=== PATIENT | female | born 1940 | race Caucasian/White ===

== ENCOUNTER 2021-02-12 11:12 | Day surgery (SDC) | payer MEDICARE, BC ==
[2021-02-07 10:14] LABS: BASOPHILS % (AUTO) 0.8 % (0-1); EOSINOPHILS # (AUTO) 0.1 X10'3 (0-0.9); EOSINOPHILS % (AUTO) 2.3 % (0-6); HEMATOCRIT 38.5 % (35.0-45.0); HEMOGLOBIN 12.1 g/dl (12.0-16.0); LYMPHOCYTES # (AUTO) 0.4 X10'3 (1.1-4.8); LYMPHOCYTES % (AUTO) 13.1 % (21-51); MEAN CORPUSCULAR HGB CONC 31.5 g/dL (33.0-36.5); MEAN CORPUSCULAR VOLUME 85.7 FL (78-98); MEAN PLATELET VOLUME 8.5 FL (7.4-10.4); MONOCYTES # (AUTO) 0.6 X10'3 (0-0.9); MONOCYTES % (AUTO) 17.1 % (2-12); NEUTROPHILS # (AUTO) 2.2 X10'3 (1.8-7.7); NEUTROPHILS % (AUTO) 66.7 % (42-75); PLATELET COUNT 164 X10'3 (140-440); RED BLOOD COUNT 4.49 X10'6 (4.20-5.60); RED CELL DISTRIBUTION WIDTH 17.2 % (11.5-14.5); WHITE BLOOD COUNT 3.3 X10'3 (4.5-11.0)
[2021-02-07 10:25] LABS: ALBUMIN 4.1 G/DL (3.4-5.0); ANION GAP 8 (8-16); BLOOD UREA NITROGEN 15 MG/DL (7-18); BUN/CREATININE RATIO 12.3 (6.6-38.0); CALCIUM 9.2 MG/DL (8.5-10.1); CHLORIDE 101 MMOL/L (99-107); CREATININE 1.22 MG/DL (0.40-0.90); GLUCOSE 88 MG/DL (70-104); SODIUM 140 MMOL/L (135-145); eGFR 42 ML/MIN
[2021-02-07 10:32] LABS: ANISOCYTOSIS 1+; PLATELET ESTIMATE NORMAL; TOTAL CELLS COUNTED 100
[2021-02-07 10:33] LABS: ELLIPTOCYTES FEW
[2021-02-07 10:44] LABS: PARTIAL THROMBOPLASTIN TIME 39 SECONDS (22-32)
[~2021-02-12] VITALS: Ht 160 cm; Wt 97.3 kg
[2021-02-12] VITALS (8 sets, daily range): BP systolic 115–133; BP diastolic 59–78
[2021-02-12] MEDS ORDERED: diphenhydrAMINE 25mg capsule PO PRN (11:35)
[2021-02-12] MEDS ORDERED: normal saline 1,000 ML IV SCH (11:35)
[2021-02-12] MEDS ORDERED: LORazepam 0.5 MG tablet PO PRN (11:35)
[2021-02-12] MEDS ORDERED: LIDOcaine/PRILOcaine 5gm cream TP ONE (11:40)
[2021-02-12] MEDS ORDERED: ALLO100T PO (11:54)
[2021-02-12] MEDS ORDERED: FURO40TA4 PO (11:54)
[2021-02-12] MEDS ORDERED: SIMV-42 PO (11:54)
[2021-02-12] MEDS ORDERED: WARF2.5T82 PO (11:54)
[2021-02-12] MEDS ORDERED: METO100T14 PO (11:54)
[2021-02-12] MEDS ORDERED: ENOX100D5 (11:54)
[2021-02-12] MEDS ORDERED: LEVO100T9 PO (11:54)
[2021-02-12] MEDS ORDERED: POTA-82 PO (11:54)
[2021-02-12] MEDS ORDERED: CETI10CA PO (11:57)
[2021-02-12] MEDS ORDERED: MULT-1085 PO (11:57)
[2021-02-12] MEDS ORDERED: VITAMIN D PO (11:57)
[2021-02-12] MEDS ORDERED: FERR325T28 PO (11:58)
[2021-02-12] MEDS ORDERED: SENN-25 PO (11:58)
[2021-02-12] MEDS ORDERED: LIDOcaine 1% (10mg/ml)w/preservative injection 20ml MDV ONE (13:57)
[2021-02-12] MEDS ORDERED: fentaNYL/PF 50MCG/1 ML 2ML syringe ONE (13:57)
[2021-02-12] MEDS ORDERED: verapamil 2.5 mg/ml inj IV ONE (13:57)
[2021-02-12] MEDS ORDERED: iohexol 350MG/ML 100ml bottle IV ONE (13:57)
[2021-02-12] MEDS ORDERED: nitroGLYCERIN-Tridil 50MG/D5W 250 ML IV ONE (13:57)
[2021-02-12] MEDS ORDERED: midazolam 1 mg/ML 2ml injection ONE (13:57)
[2021-02-12] MEDS ORDERED: heparin 1,000unit/ml 10ml vial 10 ML ONE (13:57)
[2021-02-12] MEDS ORDERED: ondansetron/PF 4mg/2ml inj IV PRN (14:50)
[2021-02-12] MEDS ORDERED: OXAZEpam 15mg capsule PO PRN (14:50)
[2021-02-12] MEDS ORDERED: HYDROcodone/acetaminophen 10/325mg tab PO PRN (14:50)
[2021-02-12] MEDS ORDERED: proCHLORperazine 10 MG/2 ml inj IV PRN (14:50)
[2021-02-12] MEDS ORDERED: HYDROcodone/acetaminophen 5mg/325mg tablet PO PRN (14:50)
== END 2021-02-12 17:05 | disposition home or self-care (01) ==
LOC: SSTAY O 11:12
PROVIDERS: ATTEND Internal Medicine Interventional Cardiology
DX: I35.0 Nonrheumatic aortic (valve) stenosis (principal); I25.10 Atherosclerotic heart disease of native coronary artery without angina pectoris; J44.9 Chronic obstructive pulmonary disease, unspecified; I10 Essential (primary) hypertension; I48.91 Unspecified atrial fibrillation; I42.9 Cardiomyopathy, unspecified; E78.5 Hyperlipidemia, unspecified; E03.9 Hypothyroidism, unspecified; Z86.73 Personal history of transient ischemic attack (TIA), and cerebral infarction without residual deficits; Z79.899 Other long term (current) drug therapy; Z88.0 Allergy status to penicillin; Z87.891 Personal history of nicotine dependence
CPT/HCPCS: 36415; 80048; 85025; 85610; 85730; 93005; 93454; 99152; C1769; C1894; J1644; J2001; J2250; J3010; J7030; Q0163; Q9967; 85007; A4620; J3490

== ENCOUNTER → 2021-08-14 | Outpatient (CLI) | payer MEDICARE, BC ==
[~2021-08-14] VITALS: Ht 157.5 cm; Wt 104.3 kg
[~2021-08-14] MED LIST: ALLO100T PO; CETI10CA PO; ENOX100D5; FERR325T28 PO; FURO40TA4 PO; IODIXANOL 320 MG/ML INFUS..BTL 100ML IV ONE; IODIXANOL 320 MG/ML INFUS..BTL 50ML IV ONE; LEVO100T9 PO; METO100T14 PO; MULT-1085 PO; POTA-82 PO; SENN-25 PO; SIMV-42 PO; VITAMIN D PO; WARF2.5T82 PO; albuterol 2.5 MG/3 ML nebule NEB ONE; atropine 0.1mg/ml 10ml syringe ONE; metoprolol tartrate 1mg/ml inj IV ONE
[2021-08-14 10:26] LABS: EOSINOPHILS # (AUTO) 0.1 X10'3 (0-0.9); EOSINOPHILS % (AUTO) 2.2 % (0-6); HEMATOCRIT 38.8 % (35.0-45.0); HEMOGLOBIN 12.1 g/dl (12.0-16.0); LYMPHOCYTES # (AUTO) 0.4 X10'3 (1.1-4.8); LYMPHOCYTES % (AUTO) 12.8 % (21-51); MEAN CORPUSCULAR HEMOGLOBIN 26.4 PG (27.0-31.0); MEAN CORPUSCULAR HGB CONC 31.2 g/dL (33.0-36.5); MEAN CORPUSCULAR VOLUME 84.7 FL (78-98); MEAN PLATELET VOLUME 7.7 FL (7.4-10.4); MONOCYTES # (AUTO) 0.6 X10'3 (0-0.9); NEUTROPHILS # (AUTO) 2.2 X10'3 (1.8-7.7); PLATELET COUNT 154 X10'3 (140-440); RED BLOOD COUNT 4.57 X10'6 (4.20-5.60); RED CELL DISTRIBUTION WIDTH 25.1 % (11.5-14.5); WHITE BLOOD COUNT 3.3 X10'3 (4.5-11.0)
[2021-08-14 10:44] LABS: ALANINE AMINOTRANSFERASE 18 U/L (12-78); ALBUMIN 3.9 G/DL (3.4-5.0); ALBUMIN/GLOBULIN RATIO 1.2 (1.1-1.5); ALKALINE PHOSPHATASE 134 IU/L (46-116); ANION GAP 9 (8-16); ASPARTATE AMINO TRANSFERASE 22 U/L (10-37); BILIRUBIN,TOTAL 2.6 MG/DL (0.1-1.0); BLOOD UREA NITROGEN 26 MG/DL (7-18); BUN/CREATININE RATIO 15.2 (6.6-38.0); CALCIUM 9.5 MG/DL (8.5-10.1); CHLORIDE 101 MMOL/L (99-107); CREATININE 1.71 MG/DL (0.40-0.90); GLUCOSE 94 MG/DL (70-104); POTASSIUM 4.4 MMOL/L (3.5-5.1); SODIUM 139 MMOL/L (135-145); TOTAL CARBON DIOXIDE 29.1 MMOL/L (24-32); TOTAL PROTEIN 7.2 G/DL (6.4-8.2); eGFR 29 ML/MIN
[2021-08-14 10:59] LABS: APTT 37 SECONDS (22-32)
[2021-08-14 11:30] VITALS: BP 116/83
[2021-08-14 11:36] VITALS: BP 101/67
[2021-08-14 11:58] LABS: ANISOCYTOSIS 3+; PLATELET ESTIMATE NORMAL; SCHISTOCYTES FEW
[2021-08-14 11:59] LABS: ELLIPTOCYTES FEW; HYPOCHROMASIA 1+
[2021-08-14 12:36] LABS: ABG BASE EXCESS 0.4 mmol/L (-2.0-2.0); ABG OXYGEN SATURATION 89.7 % (94-97); ABG PCO2 (T) 39.9 mmHg (32.0-45.0); ABG PO2 (T) 57.1 mmHg (75.0-100.0); ALLEN'S TEST POSITIVE; FCOHb 1.1 % (0.0-3.9); FMetHb 0.1 % (0.0-1.5); FO2Hb 88.6 % (94-97); TOTAL HEMOGLOBIN 12.9 G/dl (12.0-16.0)
== END | disposition home or self-care (01) ==
LOC: RAD 09:48
PROVIDERS: ATTEND Internal Medicine Cardiovascular Disease
DX: Z01.818 Encounter for other preprocedural examination (principal); K57.30 Diverticulosis of large intestine without perforation or abscess without bleeding; K75.3 Granulomatous hepatitis, not elsewhere classified; I70.0 Atherosclerosis of aorta; E04.1 Nontoxic single thyroid nodule; J98.09 Other diseases of bronchus, not elsewhere classified; D17.79 Benign lipomatous neoplasm of other sites; M47.819 Spondylosis without myelopathy or radiculopathy, site unspecified; M19.012 Primary osteoarthritis, left shoulder; M24.412 Recurrent dislocation, left shoulder; I31.3 Pericardial effusion (noninflammatory); I25.10 Atherosclerotic heart disease of native coronary artery without angina pectoris; I08.0 Rheumatic disorders of both mitral and aortic valves; J90 Pleural effusion, not elsewhere classified; R94.2 Abnormal results of pulmonary function studies; M85.88 Other specified disorders of bone density and structure, other site; M19.011 Primary osteoarthritis, right shoulder; M47.814 Spondylosis without myelopathy or radiculopathy, thoracic region; Z20.822 Contact with and (suspected) exposure to COVID-19
CPT/HCPCS: 36415; 36600; 71046; 71275; 74174; 80053; 82803; 85008; 85018; 85025; 85610; 85730; 87635; 94060; 94727; 94729; 94760; C9803; J0461; J3490; Q9967

== ENCOUNTER 2021-08-30 08:54 | Outpatient (CLI) | payer MEDICARE, BC ==
[~2021-08-30 08:54] MED LIST changes: -IODIXANOL 320 MG/ML INFUS..BTL 100ML IV ONE; -IODIXANOL 320 MG/ML INFUS..BTL 50ML IV ONE; -albuterol 2.5 MG/3 ML nebule NEB ONE; -atropine 0.1mg/ml 10ml syringe ONE; -metoprolol tartrate 1mg/ml inj IV ONE
[2021-08-30 09:48] LABS: BASOPHILS % (AUTO) 0.7 % (0-1); EOSINOPHILS # (AUTO) 0.1 X10'3 (0-0.9); EOSINOPHILS % (AUTO) 2.7 % (0-6); HEMATOCRIT 37.9 % (35.0-45.0); HEMOGLOBIN 12.1 g/dl (12.0-16.0); LYMPHOCYTES # (AUTO) 0.4 X10'3 (1.1-4.8); MEAN CORPUSCULAR HEMOGLOBIN 26.6 PG (27.0-31.0); MEAN CORPUSCULAR VOLUME 83.1 FL (78-98); MEAN PLATELET VOLUME 7.8 FL (7.4-10.4); MONOCYTES # (AUTO) 0.6 X10'3 (0-0.9); MONOCYTES % (AUTO) 18.5 % (2-12); NEUTROPHILS % (AUTO) 65.1 % (42-75); PLATELET COUNT 141 X10'3 (140-440); RED BLOOD COUNT 4.56 X10'6 (4.20-5.60); RED CELL DISTRIBUTION WIDTH 22.6 % (11.5-14.5); WHITE BLOOD COUNT 3.1 X10'3 (4.5-11.0)
[2021-08-30 09:55] LABS: APTT 34 SECONDS (22-32)
[2021-08-30 10:16] LABS: ALANINE AMINOTRANSFERASE 17 U/L (12-78); ALBUMIN 3.6 G/DL (3.4-5.0); ALKALINE PHOSPHATASE 130 IU/L (46-116); ANION GAP 9 (8-16); ASPARTATE AMINO TRANSFERASE 26 U/L (10-37); BLOOD UREA NITROGEN 31 MG/DL (7-18); BUN/CREATININE RATIO 20.7 (6.6-38.0); CALCIUM 9.4 MG/DL (8.5-10.1); CHLORIDE 98 MMOL/L (99-107); GLUCOSE 80 MG/DL (70-104); POTASSIUM 3.6 MMOL/L (3.5-5.1); SODIUM 140 MMOL/L (135-145); TOTAL CARBON DIOXIDE 33.1 MMOL/L (24-32); TOTAL PROTEIN 7.3 G/DL (6.4-8.2); eGFR 33 ML/MIN
[2021-08-30 11:59] LABS: PLATELET ESTIMATE NORMAL
[2021-08-30 12:00] LABS: ANISOCYTOSIS 3+; HYPOCHROMASIA 1+
[2021-08-30 12:01] LABS: ELLIPTOCYTES FEW; SCHISTOCYTES FEW
== END 2021-08-30 23:59 | disposition home or self-care (01) ==
LOC: LAB 08:54
PROVIDERS: ATTEND Internal Medicine Cardiovascular Disease
DX: I35.0 Nonrheumatic aortic (valve) stenosis (principal); R06.02 Shortness of breath; I65.29 Occlusion and stenosis of unspecified carotid artery
CPT/HCPCS: 36415; 80053; 85008; 85025; 85610; 85730